=== PATIENT | female | born 1970 | race Caucasian/White ===

== ENCOUNTER 2017-05-05 23:27 | Emergency (ER) | payer SELFPAY ==
[2017-05-06] MEDS ORDERED: AMOXICILLIN TR/POT CLAVULANATE 500-125 MG TAB PO ONE (00:09)
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
== END 2017-05-06 00:38 | disposition home or self-care (01) ==
LOC: EEVIPCON 23:27 → ER 23:27
DX: Z23 Encounter for immunization (principal); S61.253A Open bite of left middle finger without damage to nail, initial encounter; W50.3XXA Accidental bite by another person, initial encounter
CPT/HCPCS: 99283